=== PATIENT | male | born 1950 | race Caucasian/White ===

== ENCOUNTER 2021-07-16 00:13 | Emergency (ER) | payer SELFPAY ==
[~2021-07-16] VITALS: Ht 188 cm; Wt 83.9 kg
--- NOTE | 2021-07-16 00:15 | NUR ---
SOO 89 FROM HOME FOR C/O SOB AND COUGH X 1 HOUR BREATHING TX GIVEN BY EMS W/ IMPROVEMENT,PT AAOX4, PT TO BED 6, NOT IN ACUTE DISTRESS, DENIES CP. VSS .PENDING ER PROVIDER STEPHANIE
[2021-07-16] MEDS ORDERED: ALBUTEROL FS 2.5 MG/3 ML VIAL.NEB ONE (00:58)
[2021-07-16 00:59] LABS: CALCIUM, SERUM 8.1 mg/dL (8.5-10.1); CARBON DIOXIDE 21 mmol/L (21-32); CHLORIDE 109 mmol/L (98-107); CREATININE 1.5 mg/dL (0.6-1.3); GLUCOSE 154 mg/dL (74-106); POTASSIUM 3.2 mmol/L (3.5-5.1); SODIUM SERUM 143 mmol/L (136-145); UREA NITROGEN, BLOOD 23 mg/dL (7-18)
[2021-07-16] MEDS ORDERED: ALBUTEROL FS 2.5 MG/0.5 ML VIAL.NEB NEB ONE (01:00)
[2021-07-16] MEDS ORDERED: methylPREDNISolone SOD SUCC 125 MG/2ML VIAL IV ONE (01:00)
[2021-07-16] MEDS ORDERED: methylPREDNISolone SOD SUCC 125 MG/2ML VIAL ONE (01:08)
[2021-07-16 01:11] LABS: ALANINE AMINOTRANSFERASE 29 U/L (12-78); ALBUMIN 3.4 g/dL (3.4-5.0); ALKALINE PHOSPHATASE 78 U/L (46-116); ASPARTATE AMINOTRANSFERASE 22 U/L (15-37); BASOPHILS % (AUTO) 0.7 % (0.0-2.0); BILIRUBIN,DIRECT 0.1 mg/dL (0.0-0.2); BILIRUBIN,TOTAL 0.4 mg/dL (0.2-1.0); EOSINOPHILS % (AUTO) 10.4 % (0.0-6.0); HEMATOCRIT 39 % (39-51); HEMOGLOBIN 13.2 g/dL (13.5-17.5); LYMPHOCYTES # (AUTO) 2.6 K/uL (0.8-4.8); LYMPHOCYTES % (AUTO) 39.1 % (20.0-44.0); MEAN CORPUSCULAR HGB CONC 34 g/dl (31.0-36.0); MEAN CORPUSCULAR VOLUME 91 fL (80-96); MONOCYTES # (AUTO) 0.3 K/uL (0.1-1.30); MONOCYTES % (AUTO) 4.7 % (2.0-12.0); NEUTROPHILS % (AUTO) 45.1 % (43.0-81.0); PLATELET COUNT (AUTO) 201 K/uL (150-450); RED BLOOD CELL COUNT(AUTO) 4.28 MIL/uL (4.5-6.0); TOTAL PROTEIN, SERUM 6.7 g/dL (6.4-8.2); WHITE BLOOD COUNT (AUTO) 6.8 K/uL (4.3-11.0)
[2021-07-16] MEDS ORDERED: ALBU8.5H8 INH (02:18)
[2021-07-16] MEDS ORDERED: PRED50TA PO (02:18)
--- NOTE | 2021-07-16 02:33 | NUR ---
Patient discharged to home in stable condition. Written and verbal after care instructions given. Patient verbalizes understanding of instruction. IV removed. Catheter intact and site benign. Pressure and 4x4 applied to site. No bleeding noted.
[2021-07-16 02:36] VITALS: BP 121/78
== END 2021-07-16 02:36 | disposition home or self-care (01) ==
LOC: ER 00:13
DX: J45.909 Unspecified asthma, uncomplicated (principal); Z20.822 Contact with and (suspected) exposure to COVID-19; I49.3 Ventricular premature depolarization; E78.5 Hyperlipidemia, unspecified; Z85.46 Personal history of malignant neoplasm of prostate; Z90.79 Acquired absence of other genital organ(s); J33.9 Nasal polyp, unspecified
CPT/HCPCS: 36415; 71045; 80048; 80076; 83605; 83880; 84484; 85025; 85730; 87040 ×2; 87426; 93005; 94640; 96374; 99285; C9803; J2930